=== PATIENT | male | born 1935 | race Caucasian/White ===

== ENCOUNTER → 2019-05-18 | Outpatient (CLI) | payer MEDICARE, OTHER | END | disposition home or self-care (01) | LOC: LAB SHORT 07:35 → PLD 07:35 | DX: D48.5 Neoplasm of uncertain behavior of skin (principal) | CPT/HCPCS: 88305 ==

== ENCOUNTER 2020-07-22 14:24 | Emergency (ER) | payer OTHER, MEDICARE ==
[~2020-07-22] VITALS: Ht 180.3 cm; Wt 102.5 kg
[2020-07-22] MEDS ORDERED: ELIQUIS5 MG (14:42)
[2020-07-22] MEDS ORDERED: TORSE20 (14:42)
[2020-07-22] MEDS ORDERED: [UNRECOGNIZED DRUG - OTHER] (14:43)
[2020-07-22] MEDS ORDERED: ZYRTEC10 M1 (14:45)
== END 2020-07-22 16:30 | disposition home or self-care (01) ==
LOC: ER 14:24
DX: S60.221A Contusion of right hand, initial encounter (principal); D68.32 Hemorrhagic disorder due to extrinsic circulating anticoagulants; R07.9 Chest pain, unspecified; Z23 Encounter for immunization; Z88.5 Allergy status to narcotic agent; Z79.01 Long term (current) use of anticoagulants; Z87.891 Personal history of nicotine dependence; W01.198A Fall on same level from slipping, tripping and stumbling with subsequent striking against other object, initial encounter
CPT/HCPCS: 90471; 90714; 99282

== ENCOUNTER 2020-10-24 18:07 | Inpatient (IN) | payer OTHER ==
[~2020-10-24] VITALS: Ht 175.3 cm; Wt 100.4 kg
[2020-10-24 18:41] LABS: BASOPHILS ABSOLUTE AUTO 0.06 K/mm3 (0.00-0.23); BASOPHILS PERCENT AUTO 0 % (0-2); EOSINOPHILS ABSOLUTE AUTO 0.02 K/mm3 (0.00-0.68); EOSINOPHILS PERCENT AUTO 0 % (0-6); Hematocrit 38.9 % (37.0-53.0); Hemoglobin 12.8 g/dL (13.5-17.5); IMMATURE GRAN ABSOLUTE AUTO 0.15 K/mm3 (0.00-0.10); IMMATURE GRAN PERCENT AUTO 1 % (0-1); LYMPHOCYTES ABSOLUTE AUTO 0.29 K/mm3 (0.84-5.20); LYMPHOCYTES PERCENT AUTO 2 % (21-46); MONOCYTES ABSOLUTE AUTO 0.92 K/mm3 (0.16-1.47); MONOCYTES PERCENT AUTO 5 % (4-13); Mean Corpuscular HGB Conc 32.9 g/dL (31.5-36.5); Mean Corpuscular Volume 91 fL (80-100); Mean Platelet Volume 10.7 fL (9.1-12.4); NEUTROPHILS PERCENT AUTO 92 % (41-73); Platelet Count 216 K/mm3 (150-400); RDW Coefficient Variation 14.5 % (11.7-14.2); RDW Standard Deviation 48.3 fL (35.1-46.3); Red Blood Cell Count 4.27 M/mm3 (4.30-5.90); White Blood Cell Count 17.44 K/mm3 (4.00-11.30)
[2020-10-24 18:58] LABS: Alanine Aminotransfer (ALT/SGP 17 U/L (12-78); Albumin, Blood 2.6 g/dL (3.4-5.0); Albumin/Globulin Ratio 0.6 (0.8-1.8); Alk Phos 136 U/L (50-136); Anion Gap 6 mmol/L (6-16); Aspartate Aminotrans (AST/SGOT 21 U/L (12-37); Bilirubin, Total 2.7 mg/dL (0.1-1.0); Blood Urea Nitrogen 17 mg/dL (8-24); Bun/Creatinine Ratio 21.8 (12.0-20.0); CO2, Blood 26 mmol/L (21-32); Chloride, Blood 103 mmol/L (98-108); Creatinine, Blood 0.78 mg/dL (0.60-1.20); Globulin, Blood 4.7 g/dL (2.2-4.0); Glomerular Filtration Rate >60 (60-); Glucose, Blood 91 mg/dL (70-99); Potassium, Blood 3.1 mmol/L (3.5-5.5); Sodium, Blood 135 mmol/L (136-145); Total Protein, Blood 7.3 g/dL (6.4-8.2)
[2020-10-24 19:11] LABS: Source, Urine Clean Catch
[2020-10-24 19:14] LABS: Appearance, Urine Clear (Clear); Bilirubin, Urine Neg (Neg); Blood, Urine Neg (Neg); Color, Urine Amber (P-Yellow); Glucose Qualitative, Urine Neg (Neg); Ketones, Urine Neg (Neg); Leukocyte Esterase, Urine 1+ (Neg); Nitrite, Urine Neg (Neg); Protein, Urine Neg (Neg); Urobilinogen, Urine 2+ (Normal)
[2020-10-24 19:21] LABS: Bacteria Mod /hpf; Hyaline Casts 0-2 /lpf (0-2); Red Blood Cells, Urine 0-2 /hpf (0-2); Squamous Epithelial Cells Few /hpf (Few)
[2020-10-24 19:35] LABS: International Normalized Ratio 1.4; Prothrombin Time Results 14.8 Sec (9.7-11.5)
[2020-10-24] MEDS ORDERED: TORSE20 PO (21:07)
[2020-10-24] MEDS ORDERED: ZYRTEC10 M1 PO (21:07)
[2020-10-24] MEDS ORDERED: ELIQUIS5 MG PO (21:07)
[2020-10-24] MEDS ORDERED: PROSTAGENIX PO (21:07)
[2020-10-24] MEDS ORDERED: POTA10T PO (21:08)
[2020-10-24] MEDS ORDERED: ELIQUIS5 M2 PO (21:31)
[2020-10-24 22:05] LABS: SARS-Cov-2 (COVID-19) PCR, MMC NEGATIVE (NEGATIVE)
--- NOTE | 2020-10-24 23:48 | NUR ---
PT ARRIVED TO FLOOR FROM ER. PT A/O, FORGETFUL, VSS. PT MOVES ALL EXT, IS ABLE TO STAND W/1-2 ASSIST, IS WEAK WHEN UP. PT HAS 3+EDEMA TO LLE, 2+EDEMA ON RLE. LUNGS DIM W/FINE CRACKLES IN BASES, PT DENIES SOB, DOES HAVE LOOSE PROD COUGH. AT BEDSIDE, ASSISTED W/ADMIT HX, PLAN TO RETRUN IN AM FOR MD ROUNDING. PT ORIENTED TO ROOM/CALL LIGHT, BED ALARM ON FOR SAFETY.
[2020-10-25 06:09] LABS: BASOPHILS ABSOLUTE AUTO 0.06 K/mm3 (0.00-0.23); BASOPHILS PERCENT AUTO 0 % (0-2); EOSINOPHILS ABSOLUTE AUTO 0.02 K/mm3 (0.00-0.68); EOSINOPHILS PERCENT AUTO 0 % (0-6); Hematocrit 35.5 % (37.0-53.0); Hemoglobin 11.6 g/dL (13.5-17.5); IMMATURE GRAN ABSOLUTE AUTO 0.15 K/mm3 (0.00-0.10); IMMATURE GRAN PERCENT AUTO 1 % (0-1); LYMPHOCYTES ABSOLUTE AUTO 0.62 K/mm3 (0.84-5.20); LYMPHOCYTES PERCENT AUTO 4 % (21-46); MONOCYTES ABSOLUTE AUTO 1.24 K/mm3 (0.16-1.47); MONOCYTES PERCENT AUTO 8 % (4-13); Mean Corpuscular HGB 29.7 pg (26.0-34.0); Mean Corpuscular HGB Conc 32.7 g/dL (31.5-36.5); Mean Corpuscular Volume 91 fL (80-100); Mean Platelet Volume 10.6 fL (9.1-12.4); NEUTROPHILS ABSOLUTE AUTO 14.27 K/mm3 (1.96-9.15); NEUTROPHILS PERCENT AUTO 87 % (41-73); Platelet Count 190 K/mm3 (150-400); RDW Coefficient Variation 14.6 % (11.7-14.2); RDW Standard Deviation 48.5 fL (35.1-46.3); Red Blood Cell Count 3.91 M/mm3 (4.30-5.90); White Blood Cell Count 16.36 K/mm3 (4.00-11.30)
--- NOTE | 2020-10-25 06:21 | NUR ---
PT VSS T/O NIGHT; HR AFIB 80'S PER TELE MONITOR. SATS >90% ON RA. PT ALERT, IS FORGETFUL AT TIMES, REDIRECTS EASILY. PT MOVES ALL EXT, IS WEAK/UNSTEADY WHEN UP. LEGS ELEVATED IN BED. PT USING CALL LIGHT FOR ASSISTANCE; BED ALARM ON FOR SAFETY.
[2020-10-25 06:31] LABS: Alanine Aminotransfer (ALT/SGP 12 U/L (12-78); Albumin, Blood 2.3 g/dL (3.4-5.0); Albumin/Globulin Ratio 0.6 (0.8-1.8); Alk Phos 111 U/L (50-136); Anion Gap 8 mmol/L (6-16); Aspartate Aminotrans (AST/SGOT 17 U/L (12-37); Bilirubin, Total 2.2 mg/dL (0.1-1.0); Blood Urea Nitrogen 17 mg/dL (8-24); Bun/Creatinine Ratio 22.5 (12.0-20.0); CO2, Blood 25 mmol/L (21-32); Calcium, Blood 8.6 mg/dL (8.5-10.1); Chloride, Blood 105 mmol/L (98-108); Creatinine, Blood 0.75 mg/dL (0.60-1.20); Globulin, Blood 3.8 g/dL (2.2-4.0); Glomerular Filtration Rate >60 (60-); Glucose, Blood 103 mg/dL (70-99); Potassium, Blood 3.5 mmol/L (3.5-5.5); Sodium, Blood 138 mmol/L (136-145); Total Protein, Blood 6.1 g/dL (6.4-8.2)
[2020-10-25] MEDS ORDERED: PROSTAGENIX PO (09:07)
[2020-10-25] MEDS ORDERED: SYMBICORT 160-4.6 GM INH (09:09)
--- NOTE | 2020-10-25 18:27 | NUR ---
SHIFT SUMMARY PT HAS DONE VERY WELL TODAY. ECHO COMPLETED. SPEECH THERAPY, PT, & OT EVALUATED PT. 1 PERSON ASSIST TO AMBULATE TO BATHROOM FOR VOIDS. UP IN CHAIR x 2. EDEMA REMAINS UNCHANGED.
[2020-10-26 06:15] LABS: BASOPHILS ABSOLUTE AUTO 0.06 K/mm3 (0.00-0.23); BASOPHILS PERCENT AUTO 1 % (0-2); EOSINOPHILS ABSOLUTE AUTO 0.15 K/mm3 (0.00-0.68); EOSINOPHILS PERCENT AUTO 2 % (0-6); Hematocrit 36.2 % (37.0-53.0); Hemoglobin 12.1 g/dL (13.5-17.5); IMMATURE GRAN ABSOLUTE AUTO 0.17 K/mm3 (0.00-0.10); IMMATURE GRAN PERCENT AUTO 2 % (0-1); LYMPHOCYTES ABSOLUTE AUTO 0.66 K/mm3 (0.84-5.20); LYMPHOCYTES PERCENT AUTO 7 % (21-46); MONOCYTES ABSOLUTE AUTO 1.15 K/mm3 (0.16-1.47); MONOCYTES PERCENT AUTO 12 % (4-13); Mean Corpuscular HGB Conc 33.4 g/dL (31.5-36.5); Mean Corpuscular Volume 90 fL (80-100); Mean Platelet Volume 10.4 fL (9.1-12.4); NEUTROPHILS ABSOLUTE AUTO 7.55 K/mm3 (1.96-9.15); NEUTROPHILS PERCENT AUTO 78 % (41-73); Platelet Count 205 K/mm3 (150-400); RDW Coefficient Variation 14.5 % (11.7-14.2); Red Blood Cell Count 4.04 M/mm3 (4.30-5.90); White Blood Cell Count 9.74 K/mm3 (4.00-11.30)
[2020-10-26 06:38] LABS: Anion Gap 8 mmol/L (6-16); Blood Urea Nitrogen 18 mg/dL (8-24); Bun/Creatinine Ratio 24.9 (12.0-20.0); CO2, Blood 26 mmol/L (21-32); Calcium, Blood 8.5 mg/dL (8.5-10.1); Chloride, Blood 104 mmol/L (98-108); Creatinine, Blood 0.72 mg/dL (0.60-1.20); Glomerular Filtration Rate >60 (60-); Glucose, Blood 106 mg/dL (70-99); Sodium, Blood 138 mmol/L (136-145)
--- NOTE | 2020-10-26 06:39 | NUR ---
PT VSS T/O NIGHT, SATS >90% ON RA; CPAP ON SURING NIGHT. PT UP VOIDING FREQUENTLY T/O NIGHT, TOTAL URINE OUTPUT >2400. EDEMA TO BLE IMPROVED THIS AM. PT REP HE FEELS STRONGER, IS UP OOB W/FWW+1 ASSIST, HE DOES BECOME UNSTEADY AT TIMES WHEN UP. PT A/O, IS FORGETFUL AT TIMES, REORIENTS EASILY. SCD'S IN PLACE, BED ALARM ON FOR SAFETY.
--- NOTE | 2020-10-26 07:25 | NUR ---
assisted pt to bathroom to void pt stated he feels much better has been going alot the most he has in his life stated he feels stronger in his legs and his breathing is better
--- NOTE | 2020-10-26 08:36 | NUR ---
DR CABRAL TO SEE PT WILL INC THE AMT OF K+ TO 40 MEQ THIS AM
--- NOTE | 2020-10-26 10:07 | NUR ---
PT'S AT BEDSIDE REQ TO TALK WITH WHEN AVAILABLE
--- NOTE | 2020-10-26 11:04 | NUR ---
pt nichole in hallway with therapy earlier back to room visiting with
--- NOTE | 2020-10-27 04:30 | NUR ---
SHIFT SUMMARY PT RESTED WELL T/O NIGHT. ALERT/CONFUSED AT TIMES. PT DENIES DISCOMFORT/NAUSEA THIS SHIFT. SLIGHT CRACKLES IN BASES, DECREASED PER PREVIOUS DAY SHIFT RN. +1 EDEMA TO BLE, IMPROVED PER PT. TELEMETRY IN PLACE, A-FIB 60s TO 80s. PT UP TO RESTROOM, SBA WITH FWW. NO ACUTE CHANGES OVER NIGHT. PT CURRENTLY RESTING IN BED WITH CALL LIGHT IN REACH, BED ALARM ON FOR SAFETY.
[2020-10-27 06:29] LABS: Anion Gap 7 mmol/L (6-16); Blood Urea Nitrogen 16 mg/dL (8-24); CO2, Blood 26 mmol/L (21-32); Calcium, Blood 8.7 mg/dL (8.5-10.1); Chloride, Blood 105 mmol/L (98-108); Glomerular Filtration Rate >60 (60-); Glucose, Blood 90 mg/dL (70-99); Potassium, Blood 3.5 mmol/L (3.5-5.5); Sodium, Blood 138 mmol/L (136-145)
--- NOTE | 2020-10-27 10:43 | NUR ---
pt's daughter Ashley called to check on patient. PT GAVE VERBAL OKAY TO UPDATE DAUGHTER. DAUGHTER REQUESTED THE DOCTOR CALL HER FOR AN UPDATE. PATIENT GAVE VERBAL OKAY TO GIVE DAUGHTERS PHONE NUMBER TO PHYSICIAN FOR AN UPDATE.
--- NOTE | 2020-10-27 16:44 | NUR ---
SHIFT SUMMARY PT A/O X3; PLEASANT AND COOPERATIVE WITH CARE. HE HAS BEEN UP IN THE CHAIR FOR THE MAJORITY OF THE SHIFT. PT IS AMBULATING WELL AND IS WORKING WITH P/T/O/T. PT IS REQUESTING A FWW AND HAS A PRESCRIPTION FOR ONE IN THE CHART. NO COMPLAINTS THIS SHIFT. PT SIGNIFICANT OTHER AT THE BEDSIDE FOR THE MAJORITY OF THE SHIFT. +1 EDEMA BLE AND LUNGS DIM. VSS. WILL POSSIBLY DC HOME TOMORROW.
--- NOTE | 2020-10-28 04:24 | NUR ---
SHIFT SUMMARY PT RESTING WELL THIS NOC SHIFT. AAOX4. PT DENIES DISCOMFORT/NAUSEA. LUNG SOUNDS CLEAR, DIMINISHED IN BASES. EDEMA DECREASED TO BASELINE PER PT, BLE ELEVATED WHILE IN BED. SBA WHEN UP IN ROOM. NO ACUTE CHANGES OVER NIGHT. PT CURRENTLY RESTING IN BED WITH CALL LIGHT IN REACH.
--- NOTE | 2020-10-28 17:40 | NUR ---
SHIFT SUMMARY PT REPORTS THAT HE IS "FEELING MUCH BETTER" TODAY. HE IS A/O AND HAS BEEN VISITING WITH FAMILY TODAY. PT IS TO DC ON SATURDAY AND TO RECEIVE [facility]OT[facility] OUTPATIENT. PT NEEDS TO HAVE A POWERGLIDE PLACED. SPOUSE IS REQUESTING TO HAVE INFUSIONS DONE THROUGH THIS INFUSION CLINIC. BEEN UP IN THE CHAIR FOR THE MAJORITY OF THE DAY WITH SCD'S ON. BLE EDEMA HAS BEEN IMPROVING. VSS. WILL REPORT TO COLT LEÓN.
--- NOTE | 2020-10-29 04:13 | NUR ---
SHIFT SUMMARY NO ACUTE CHANGES. PT DENIES ANY COMPLAINTS. RESTED WELL T/O SHIFT. BLE REMAIN EDEMATOUS. ENCOURAGING ELEVATION ON PILLOWS WHILE IN BED. 1 ASSIST WITH FWW TO BRP. IV SL. USES CALL LIGHT APPROPRIATELY.
--- NOTE | 2020-10-29 19:00 | NUR ---
SHIFT SUMMARY PT REMAINS IN THE HOSPITAL FOR ABX AND CONTINUED DIURESIS. PT IS A 1 ASSIST TO THE BATHROOM WITH GAIT BELT AND WALKER. BLE REMAIN SWOLLEN AND PT HAS BEEN ENCOURAGED TO KEEP LEGS ELEVATED. KASH HOSE PLACED. SCD'S USED T/O THE DAY. PT USES CALL LIGHT APPROPRIATELY. VSS. REPORT GIVEN TO COLT LEÓN.
--- NOTE | 2020-10-30 05:32 | NUR ---
PT A/O, VSS T/O NIGHT. PT AWAKE IN CHAIR FOR MOST OF NIGHT, BLE ELEVATED IN RECLINER AND IN BED. KASH HOSE AND SCD'S IN PLACE. PT VOIDING URINE W/O DIFFICULTY, PREFERS TO VOID IN TOILET VS URINAL. PT UP OOB W/FWW+1 ASSIST, ROMEO WELL. PT USING CALL LIGHT FOR ASSISTANCE. BED AND TAB ALARMS IN PLACE.
--- NOTE | 2020-10-30 14:28 | NUR ---
DC ORDERS NOTED FOR PT TO DC HOME WITH [facility] APPOINTMENTS FOR ABX INFUSIONS, PTS STATES "HE'S NOT GOING HOME TODAY" STATES SHE WANTS TO WAIT FOR [place] AUTHORIZATION TO DO HOME INFUSIONS, DR. MELENDREZ NOTIFIED.
--- NOTE | 2020-10-30 17:32 | NUR ---
SUMMARY DENIES ANY SOB OR ANY DISCOMFORT TODAY, AMBULATED DOWN THE HALLS X2, TOLERATED WELL WITH WALKER AND STANDBY ASSIST, STATES APPETITE IS GOOD, CONT. TO HAVE 2+ BLE EDEMA, TEDS AND PAS ON, PT AND PT'S STATE EDEMA APPEAR "BETTER THAN YESTERDAY" POWERGLIDE PLACED TODAY, NO ACUTE CHANGES THIS SHIFT.
[2020-10-31 05:11] LABS: Anion Gap 5 mmol/L (6-16); Blood Urea Nitrogen 18 mg/dL (8-24); Bun/Creatinine Ratio 23.1 (12.0-20.0); CO2, Blood 29 mmol/L (21-32); Chloride, Blood 103 mmol/L (98-108); Creatinine, Blood 0.78 mg/dL (0.60-1.20); Glomerular Filtration Rate >60 (60-); Glucose, Blood 91 mg/dL (70-99); Potassium, Blood 3.8 mmol/L (3.5-5.5); Sodium, Blood 137 mmol/L (136-145)
--- NOTE | 2020-10-31 05:13 | NUR ---
PT VSS T/O NIGHT. SATS >90% ON RA, CPAP ON WHILE SLEEPING. EDEMA TO BLE REMAINS 2+ ALTHOUGH APPEARS SOMEWHAT IMPROVED. KASH HOSE AND SCD'S IN PLACE, LEGS ELEVATED. PT UP OOB W/FWW+SBA, REP STRENGTH IN NEAR BASELINE. PT PLEASANT AND COOPERATIVE, IS FORGETFUL AT TIMES DURING NIGHT; REORIENTS EASILY, BED/TAB ALARMS IN PLACE. PLAN TO D/C HOME W/HH FOR [facility] ABX TX. [facility] APPROVAL.
--- NOTE | 2020-10-31 10:54 | NUR ---
AM ASSESSMENT: PATIENT WAS CHEERFUL AND COOPERATIVE. HE HAS EXPRESSED GRATITUDE FOR THE CARE PROVIDED AND IS LOOKING FORWARD TO GOING HOME. SPOUSE BROUGHT TREATS FOR STAFF.
--- NOTE | 2020-10-31 14:59 | NUR ---
PM ASSESSMENT: PATIENT TOOK A 15 MIN WALK AROUND THE UNIT WITH HIS SPOUSE AFTER LUNCH. HIS LEFT ARM BEGAN TO TREMOR DURING ABX INFUSION. HIS OTHER EXTREMETIES ALSO STARTED TO HAVE SLIGHT TREMORS DURING ASSESSMENT. PATIENT DENIED DISCOMFORT OR SOB. NO RASH OR INFILTRATION OF POWERGLIDE SITE. RN ASSESSED AND DETERMINED CAUSE WAS FATIGUE FROM THE EXERTION OF GRIPPING WALKER. PATIENT IS RESTING COMFORTABLY IN CHAIR WITH LEGS ELEVATED AND BILATERAL COMPRESSION DEVICES ON CALVES.
[2020-10-31] MEDS ORDERED: CEFTRIAXONE2 G1 IV (17:02)
[2020-10-31] MEDS ORDERED: METO25ER PO (17:03)
[2020-10-31] MEDS ORDERED: VISBIOME 112.51 EACH PO (17:04)
--- NOTE | 2020-10-31 18:39 | NUR ---
DISCHARGE PT LEFT AT APPROX 1810 VIA WHEELCHAIR. DISCHARGE INSTRUCTIONS GONE OVER WITH PATIENT AND AT LENGTH. EDUCATED THEM ON APPOINTMENT TOMORROW WITH [facility] AT 11AM, FAXED INFORMATION TO [facility] AND CONFIRMED WITH THEM. WENT OVER PLAN TO GET HOME MEDICATIONS DELIVERED TOMORROW AND HOME HEALTH TO MEET ON SATURDAY. FAXED MEDICATIONS TO [facility]. IV REMOVED PRIOR TO DISCHARGE. PT HAS DENIED SOB DURING DAY AND REPORTS FEELING MUCH BETTER OVERALL. PT AMBULATING FREQUENTLY IN HALLWAYS WITH FWW AND SBY ASSISST. TOLERATING PO WELL, VOIDING REGULARILY. DECLINED ANY FURTHER QUESTIONS ALL BELONGINGS SENT WITH PATIENT. DISCHARGED WITH POWERGLIDE TO [facility], DRESSING WAS CD[facility], ORANGE CAP IN PLACE.
== END 2020-10-31 18:10 | disposition home health service (06) | DRG 871 ==
LOC: ER 18:07 → SURS 21:22
PROVIDERS: Family Medicine; Physician Assistant; Student in an Organized Health Care Education/Training Program; ADMIT Internal Medicine
DX: A40.8 Other streptococcal sepsis (principal); I50.23 Acute on chronic systolic (congestive) heart failure; J18.9 Pneumonia, unspecified organism; R65.20 Severe sepsis without septic shock; I48.91 Unspecified atrial fibrillation; Z20.822 Contact with and (suspected) exposure to COVID-19; E87.6 Hypokalemia; I11.0 Hypertensive heart disease with heart failure; R13.10 Dysphagia, unspecified; Z91.14 Patient's other noncompliance with medication regimen; Z87.891 Personal history of nicotine dependence; Z98.890 Other specified postprocedural states; Z79.01 Long term (current) use of anticoagulants; Z79.899 Other long term (current) drug therapy
CPT/HCPCS: 36415; 71045; 80048; 80053; 81001; 83605; 83735; 83880; 84145; 85025; 85610; 85730; 87040; 87086; 87184; 92610; 93005; 93010; 93306; 94760; 94762; 96365; 96367; 97110; 97116; 97162; 97165; 97530; 97535; 99285-25; A9270; J0696; J3480; J7030; J7050; U0004

== ENCOUNTER 2020-11-01 09:23 | Day surgery (SDC) | payer OTHER, MEDICARE ==
[~2020-11-01 09:23] MED LIST: CEFTRIAXONE2 G1 IV; ELIQUIS5 M2 PO; ELIQUIS5 MG PO; METO25ER PO; POTA10T PO; PROSTAGENIX PO; SYMBICORT 160-4.6 GM INH; TORSE20 PO; VISBIOME 112.51 EACH PO; ZYRTEC10 M1 PO
== END 2020-11-01 12:08 | disposition home or self-care (01) ==
LOC: ATC 09:23
DX: R78.81 Bacteremia (principal)
CPT/HCPCS: 96365; J0696

== ENCOUNTER → 2021-07-26 | Outpatient (CLI) | payer MEDICARE, OTHER ==
[~2021-07-26] MED LIST changes: +AMOCLA875 PO; +Bactrim Ds Tab1 EACH PO; +HYDCHL25 PO; +MODAFINIL100 M1 PO; +NADO20 PO; +PANT40 PO; +SPIR25 PO; +TAMS.4ER PO
[2021-07-26 19:40] LABS: BASOPHILS ABSOLUTE AUTO 0.09 K/mm3 (0.00-0.23); BASOPHILS PERCENT AUTO 2 % (0-2); EOSINOPHILS ABSOLUTE AUTO 0.23 K/mm3 (0.00-0.68); EOSINOPHILS PERCENT AUTO 5 % (0-6); Hematocrit 40.6 % (37.0-53.0); Hemoglobin 13.2 g/dL (13.5-17.5); IMMATURE GRAN ABSOLUTE AUTO 0.03 K/mm3 (0.00-0.10); IMMATURE GRAN PERCENT AUTO 1 % (0-1); LYMPHOCYTES ABSOLUTE AUTO 0.75 K/mm3 (0.84-5.20); LYMPHOCYTES PERCENT AUTO 15 % (21-46); MONOCYTES PERCENT AUTO 19 % (4-13); Mean Corpuscular HGB 27.7 pg (26.0-34.0); Mean Corpuscular HGB Conc 32.5 g/dL (31.5-36.5); Mean Corpuscular Volume 85 fL (80-100); NEUTROPHILS ABSOLUTE AUTO 3.06 K/mm3 (1.96-9.15); NEUTROPHILS PERCENT AUTO 59 % (41-73); Platelet Count 147 K/mm3 (150-400); RDW Coefficient Variation 23.4 % (11.7-14.2); RDW Standard Deviation 69.8 fL (35.1-46.3); Red Blood Cell Count 4.77 M/mm3 (4.30-5.90); White Blood Cell Count 5.16 K/mm3 (4.00-11.30)
[2021-07-26 19:49] LABS: Free Thyroxine 1.21 ng/dL (0.70-1.60)
[2021-07-26 19:54] LABS: Mean Platelet Volume 11.2 fL (9.1-12.4)
== END | disposition home or self-care (01) ==
LOC: LAB SHORT 18:52
PROVIDERS: Family Medicine
DX: F03.90 Unspecified dementia, unspecified severity, without behavioral disturbance, psychotic disturbance, mood disturbance, and anxiety (principal)
CPT/HCPCS: 82607; 82746; 84439; 85025; 85651

== ENCOUNTER → 2021-10-10 | Outpatient (CLI) | payer MEDICARE, OTHER ==
[2021-10-10 20:45] LABS: Albumin, Blood 3.2 g/dL (3.4-5.0); Albumin/Globulin Ratio 0.8 (0.8-1.8); Bilirubin, Total 1.2 mg/dL (0.1-1.0); Bun/Creatinine Ratio 29.7 (12.0-20.0); Calcium, Blood 9.2 mg/dL (8.5-10.1); Creatinine, Blood 0.98 mg/dL (0.60-1.20); Potassium, Blood 3.8 mmol/L (3.5-5.5); Thyroid Stimulating Hormone 0.838 uIU/mL (0.360-4.800); Total Protein, Blood 7.2 g/dL (6.4-8.2)
== END | disposition home or self-care (01) ==
LOC: LAB 20:11 → LAB SHORT 20:11
PROVIDERS: Family Medicine
DX: R60.0 Localized edema (principal)
CPT/HCPCS: 80053; 83880; 84443

== ENCOUNTER 2022-01-15 20:51 | Emergency (ER) | payer MEDICARE, OTHER ==
[~2022-01-15] VITALS: Ht 177.8 cm; Wt 81.7 kg
== END 2022-01-16 01:41 | disposition home or self-care (01) ==
LOC: ER 20:51
DX: S42.214A Unspecified nondisplaced fracture of surgical neck of right humerus, initial encounter for closed fracture (principal); F03.90 Unspecified dementia, unspecified severity, without behavioral disturbance, psychotic disturbance, mood disturbance, and anxiety; W18.12XA Fall from or off toilet with subsequent striking against object, initial encounter; Z88.8 Allergy status to other drugs, medicaments and biological substances; Z79.899 Other long term (current) drug therapy; Z95.2 Presence of prosthetic heart valve; Z87.891 Personal history of nicotine dependence; Z88.5 Allergy status to narcotic agent
CPT/HCPCS: 29105; 36415; 70450; 73030; 99284-25; A9270

== ENCOUNTER 2022-01-18 15:20 | Emergency (ER) | payer MEDICARE, OTHER ==
[~2022-01-18] VITALS: Ht 170.2 cm; Wt 80.7 kg
[2022-01-18 16:23] LABS: BASOPHILS ABSOLUTE AUTO 0.08 K/mm3 (0.00-0.23); BASOPHILS PERCENT AUTO 1 % (0-2); EOSINOPHILS ABSOLUTE AUTO 0.02 K/mm3 (0.00-0.68); EOSINOPHILS PERCENT AUTO 0 % (0-6); Hematocrit 34.3 % (37.0-53.0); Hemoglobin 11.4 g/dL (13.5-17.5); IMMATURE GRAN ABSOLUTE AUTO 0.38 K/mm3 (0.00-0.10); IMMATURE GRAN PERCENT AUTO 2 % (0-1); LYMPHOCYTES ABSOLUTE AUTO 0.88 K/mm3 (0.84-5.20); LYMPHOCYTES PERCENT AUTO 5 % (21-46); MONOCYTES ABSOLUTE AUTO 2.61 K/mm3 (0.16-1.47); MONOCYTES PERCENT AUTO 16 % (4-13); Mean Corpuscular HGB 29.8 pg (26.0-34.0); Mean Corpuscular HGB Conc 33.2 g/dL (31.5-36.5); Mean Corpuscular Volume 90 fL (80-100); NEUTROPHILS ABSOLUTE AUTO 12.32 K/mm3 (1.96-9.15); NEUTROPHILS PERCENT AUTO 76 % (41-73); Platelet Count 338 K/mm3 (150-400); RDW Coefficient Variation 15.2 % (11.7-14.2); RDW Standard Deviation 48.5 fL (35.1-46.3); Red Blood Cell Count 3.83 M/mm3 (4.30-5.90); White Blood Cell Count 16.29 K/mm3 (4.00-11.30)
[2022-01-18 16:32] LABS: Albumin, Blood 2.6 g/dL (3.4-5.0); Albumin/Globulin Ratio 0.5 (0.8-1.8); Bilirubin, Total 2.1 mg/dL (0.1-1.0); Bun/Creatinine Ratio 37.4 (12.0-20.0); Calcium, Blood 9.7 mg/dL (8.5-10.1); Creatinine, Blood 1.55 mg/dL (0.60-1.20); Globulin, Blood 4.9 g/dL (2.2-4.0); Potassium, Blood 5.1 mmol/L (3.5-5.5); Total Protein, Blood 7.5 g/dL (6.4-8.2)
== END 2022-01-18 17:20 | disposition home or self-care (01) ==
LOC: ER 15:20
PROVIDERS: Student in an Organized Health Care Education/Training Program
DX: M96.840 Postprocedural hematoma of a musculoskeletal structure following a musculoskeletal system procedure (principal); I48.91 Unspecified atrial fibrillation; Z79.01 Long term (current) use of anticoagulants; Z88.8 Allergy status to other drugs, medicaments and biological substances; Z88.5 Allergy status to narcotic agent; Z79.899 Other long term (current) drug therapy; Z87.891 Personal history of nicotine dependence
CPT/HCPCS: 36415; 80053; 85025; 99283; J7030